=== PATIENT | male | born 1970 | race African-American/Black ===

== ENCOUNTER 2022-01-12 07:48 | Inpatient (IN) | payer MEDICAID ==
[~2022-01-12] VITALS: Ht 167.6 cm; Wt 108.9 kg
[2022-01-12 08:33] LABS: HEMATOCRIT. 40.6 % (42.0-52.0); HEMOGLOBIN. 13.1 g/dL (14.0-18.0); MEAN CORPUSCULAR HEMOGLOBIN 27.3 pg (28.0-32.0); MEAN CORPUSCULAR VOLUME 84.7 fL (80.0-94.0); MEAN PLATELET VOLUME 7.2 fl (7.4-10.4); PLATELET 354 x1000/uL (130-400); RED BLOOD CELL COUNT 4.79 mill/uL (4.7-6.1); RED CELL DISTRIBUTION WIDTH 16.9 % (11.6-14.6)
[2022-01-12 08:43] LABS: CHLORIDE 108 mEq/L (98-107)
[2022-01-12] MEDS ORDERED: SODIUM CHLORIDE 0.9% 1,000 ML IV ONE (08:45)
[2022-01-12] MEDS ORDERED: ONDANSETRON HCL 4MG/2ML INJ IV ONE (09:15)
[2022-01-12] MEDS ORDERED: PIPERACILLIN/TAZOBACTAM 3.375GM/50ML PREMIX IV ONE (10:15)
[2022-01-12] MEDS ORDERED: VANCOMYCIN 1G PREMIX 200 ML IV SCH (10:15)
[2022-01-12] MEDS ORDERED: PIPERACILLIN/TAZOBACTAM 3.375 G in DEXTROSE 5% WATER 50 ML IV NR (11:00)
[2022-01-12 11:07] LABS: PLATELET ESTIMATE NORMAL
[2022-01-12 11:29] LABS: INR 1.1; PROTHROMBIN TIME 11.7 sec (9.6-11.0)
[2022-01-12] MEDS ORDERED: IPRATROPIUM/ALBUTEROL 0.5-3(2.5)MG/3ML NEB NEB PRN (11:45)
[2022-01-12] MEDS ORDERED: NITROGLYCERIN 0.4MG TABLET SL SL PRN (11:45)
[2022-01-12] MEDS ORDERED: ACETAMINOPHEN 650MG SUPP PR PRN (11:45)
[2022-01-12] MEDS ORDERED: ONDANSETRON HCL 4MG/2ML INJ IV PRN (11:45)
[2022-01-12] MEDS ORDERED: NALOXONE HCL 0.4MG/ML VIAL IV PRN (12:00)
[2022-01-12] MEDS ORDERED: PIPERACILLIN/TAZ 3.375G PREMIX 50 ML IV NR (12:15)
[2022-01-12 13:00] VITALS: BP 124/73
[2022-01-12] MEDS ORDERED: ENOXAPARIN 40MG/0.4ML SYR SUBCUT SCH (13:00)
[2022-01-12 13:59] VITALS: BP 124/73
[2022-01-12 16:00] VITALS: BP 146/74
[2022-01-12] MEDS ORDERED: VANCOMYCIN 1GM PMX (XELLIA) 200 ML IV SCH (16:00)
[2022-01-12] MEDS: VANCOMYCIN 1GM PMX (XELLIA) 200 ML IV SCH (18:34)
[2022-01-12] MEDS: KETOROLAC 15MG/ML VIAL IV PRN (18:40)
[2022-01-12] MEDS: ENOXAPARIN 30MG/0.3ML SYR SUBCUT SCH (18:41)
[2022-01-12] MEDS: DEXT 5%/LACTATED RINGERS 1,000 ML IV SCH (18:42)
[2022-01-12 20:00] VITALS: BP 108/54
[2022-01-12] MEDS: PIPERACILLIN/TAZOBACTAM 3.375G in DEXT 5% WATER 50ML IV SCH (21:20)
[2022-01-12] MEDS ORDERED: PIPERACILLIN/TAZOBACTAM 3.375G in DEXT 5% WATER 50ML IV SCH (22:00)
[2022-01-12] MEDS: MORPHINE SULFATE 2 MG/ML CPJ (NOT FOR IM USE) IV PRN (23:51)
[2022-01-13] VITALS: BP 124/61
[2022-01-13] MEDS: LORAZEPAM 2MG/ML CPJ IV PRN ×2 (00:07→21:54)
[2022-01-13 04:00] VITALS: BP 139/82
[2022-01-13] MEDS: VANCOMYCIN 1GM PMX (XELLIA) 200 ML IV SCH (05:39)
[2022-01-13] MEDS: PIPERACILLIN/TAZOBACTAM 3.375G in DEXT 5% WATER 50ML IV SCH ×3 (05:39→21:05)
[2022-01-13] MEDS: ENOXAPARIN 30MG/0.3ML SYR SUBCUT SCH ×2 (05:41→18:19)
[2022-01-13 07:53] LABS: HEMATOCRIT. 36.4 % (42.0-52.0); MEAN CORPUSCULAR HEMOGLOBIN 27.8 pg (28.0-32.0); MEAN CORPUSCULAR VOLUME 84.6 fL (80.0-94.0); MEAN PLATELET VOLUME 7.1 fl (7.4-10.4); PLATELET 343 x1000/uL (130-400); RED CELL DISTRIBUTION WIDTH 17.3 % (11.6-14.6)
[2022-01-13 08:00] VITALS: BP 128/61
[2022-01-13 08:05] LABS: CHLORIDE 107 mEq/L (98-107)
[2022-01-13 08:19] LABS: PHOSPHORUS 1.9 mg/dL (2.5-4.9)
[2022-01-13] MEDS: PANTOPRAZOLE SODIUM 40 MG/VIAL IV SCH (08:26)
[2022-01-13] MEDS: ACETAMINOPHEN 650MG SUPP PR PRN ×2 (08:26→14:19)
[2022-01-13] MEDS: MORPHINE SULFATE 2 MG/ML CPJ (NOT FOR IM USE) IV PRN ×2 (09:51→21:05)
[2022-01-13 12:00] VITALS: BP 141/80
[2022-01-13] MEDS: DEXT 5%/LACTATED RINGERS 1,000 ML IV SCH (14:10)
[2022-01-13 17:51] LABS: PLATELET ESTIMATE NORMAL
[2022-01-13 20:00] VITALS: BP 130/75
[2022-01-13] MEDS: VANCOMYCIN 750 MG in DEXT 5% WATER 250 ML IV SCH (20:47)
[2022-01-14] VITALS: BP 134/80
[2022-01-14 04:00] VITALS: BP 128/82
[2022-01-14] MEDS: ENOXAPARIN 30MG/0.3ML SYR SUBCUT SCH (05:31)
[2022-01-14] MEDS: PIPERACILLIN/TAZOBACTAM 3.375G in DEXT 5% WATER 50ML IV SCH (05:31)
[2022-01-14 07:44] LABS: CHLORIDE 107 mEq/L (98-107)
[2022-01-14 08:00] VITALS: BP 137/82
[2022-01-14] MEDS: PANTOPRAZOLE SODIUM 40 MG/VIAL IV SCH (09:17)
[2022-01-14] MEDS: VANCOMYCIN 750 MG in DEXT 5% WATER 250 ML IV SCH (09:17)
[2022-01-14] MEDS: KETOROLAC 15MG/ML VIAL IV PRN (09:19)
[2022-01-14] MEDS ORDERED: DIATR MEGLU/DIATRIZOATE SOLN 30ML PO SCH (10:30)
[2022-01-14 11:15] LABS: *AMPHETAMINES SCREEN URINE NEGATIVE (NEGATIVE); *BARBITURATES SCREEN URINE NEGATIVE (NEGATIVE); *BENZODIAZEPINES SCREEN URINE NEGATIVE (NEGATIVE); *COCAINE SCREEN URINE NEGATIVE (NEGATIVE); CANNABINOID URINE SCREEN PRESUMTIVE POSITIVE (NEGATIVE); METHADONE URINE SCREEN NEGATIVE (NEGATIVE); OPIATES URINE SCREEN PRESUMTIVE POSITIVE (NEGATIVE); PHENCYCLIDINE URINE SCREEN PRESUMTIVE POSITIVE (NEGATIVE)
[2022-01-14 12:00] VITALS: BP 132/79
[2022-01-14] MEDS ORDERED: VANCOMYCIN 750 MG in DEXT 5% WATER 250 ML IV SCH (14:00)
== END 2022-01-14 14:43 | disposition left against medical advice (07) | DRG 720 ==
LOC: ER 07:48 → 6EST 11:06 → EDBEDREQTM 11:11 → ENRESERV 11:21
PROVIDERS: ADMIT Internal Medicine; ATTEND Internal Medicine
DX: A41.9 Sepsis, unspecified organism (principal); K63.1 Perforation of intestine (nontraumatic); K66.8 Other specified disorders of peritoneum; E44.1 Mild protein-calorie malnutrition; D63.8 Anemia in other chronic diseases classified elsewhere; K91.89 Other postprocedural complications and disorders of digestive system; R65.20 Severe sepsis without septic shock; Y83.8 Other surgical procedures as the cause of abnormal reaction of the patient, or of later complication, without mention of misadventure at the time of the procedure; R10.9 Unspecified abdominal pain; E66.9 Obesity, unspecified; Z68.38 Body mass index [BMI] 38.0-38.9, adult; Z53.29 Procedure and treatment not carried out because of patient's decision for other reasons; Y92.89 Other specified places as the place of occurrence of the external cause
CPT/HCPCS: 36415; 71045; 74176; 80048; 80053; 80202; 80305; 83036; 83605; 83735; 84100; 84145; 85025; 93005; 93970; 99291; C9113; J1650; J1885; J2060; J2270; J2405; J2543; J3370; J7030; J7060; Q9963